=== PATIENT | female | born 1965 | race American Indian/Alaskan Native ===

== ENCOUNTER 2020-11-01 20:37 | Emergency (ER) | payer OTHER ==
[2020-11-01 21:58] VITALS: BP 143/82
--- NOTE | 2020-11-01 22:46 | XRay Report ---
RIGHT FOOT 3 VIEWS INDICATION / CLINICAL INFORMATION: acute 1st, 2nd, 3rd MT pain, swelling, redness COMPARISON: None available. FINDINGS: BONES / JOINT(S): Large bunion at the first metatarsal head with associated hallux valgus. Mild scatt ered DJD. No significant arthritis. SOFT TISSUES: Approximately 1.5 cm fragment of a sewing pin lies within the soft tissues anterior to the first metatarsal shaft. ADDITIONAL FINDINGS: None. Signer Name: Zev Boyd MD Signed: 11/01/2020 10:42 PM Workstation Name: [id number]
[2020-11-01] MEDS ORDERED: LIDOCAINE (1%) 10 MG/1 ML VIAL 20 ML MDV INFILTRATI ONE (23:20)
--- NOTE | 2020-11-01 23:34 | Emergency Department Report ---
ED General Adult HPI - General Chief complaint: Extremity Injury, Lower Stated complaint: FB/IN RT FOOT/PAINFUL Time Seen by Provider: 11/01/20 22:02 Source: patient Mode of arrival: Ambulatory Limitations: No Limitations - History of Present Illness Initial comments: 54-year-old -[place] female patient presents with complaints of right foot pain x 3 days. Patient states while putting on her shoe, she believes a pin was stuck inside of it and it slid into her foot. She states the pain suddenly worsened today when she dropped a bag on her foot. Patient rates her pain as a 9/10 in severity and states it worsens with ambulation. She denies any fever/chills/sweats, numbness/tingling/weakness in the foot, or difficulty moving her foot. - Related Data Previous Rx's Medication Instructions Recorded Last Taken Type Acetaminophen/Codeine [Tylenol 1 tab PO Q8H PRN #6 tab 11/01/20 Unknown Rx /Codeine # 3 tab] Ibuprofen [Motrin 800 MG tab] 800 mg PO Q8HR PRN #21 tablet 11/01/20 Unknown Rx Allergies Allergy/AdvReac Type Severity Reaction Status Date / Time No Known Allergies Allergy Unverified 11/01/20 22:08 ED Review of Systems ROS: Stated complaint: FB/IN RT FOOT/PAINFUL Other details as noted in HPI Constitutional: denies: chills, malaise Musculoskeletal: joint swelling, arthralgia Skin: change in color ED Past Medical Hx - Past Medical History Previous Medical History?: No - Surgical History Past Surgical History?: No - Social History Smoking Status: Never Smoker Substance Use Type: None - Medications Home Medications: Home Medications Medication Instructions Recorded Confirmed Last Taken Type Acetaminophen/Codeine [Tylenol 1 tab PO Q8H PRN #6 tab 11/01/20 Unknown Rx /Codeine # 3 tab] Ibuprofen [Motrin 800 MG tab] 800 mg PO Q8HR PRN #21 tablet 11/01/20 Unknown Rx ED Physical Exam - General Limitations: No Limitations General appearance: alert, in no apparent distress - Head Head exam: Present: atraumatic, normocephalic - Eye Eye exam: Present: normal appearance. Absent: scleral icterus - Respiratory Respiratory exam: Absent: respiratory distress - Cardiovascular Cardiovascular Exam: Present: regular rate - Extremities Exam Extremities exam: Present: other (Mild swelling noted atop the right first and second metatarsals with mild erythema; no fluctuance or purulent drainage noted; patient has normal pedal pulse, range of motion, and sensation of the foot) - Expanded Lower Extremity Exam Right Gait: Positive: antalgic - Neurological Exam Neurological exam: Present: alert, oriented X3 - Psychiatric Psychiatric exam: Present: normal affect, normal mood - Skin Skin exam: Present: warm, dry, intact. Absent: rash, diaphoretic ED Course Vital Signs 11/01/20 21:55 Temperature 97.8 F Pulse Rate 76 Respiratory 17 Rate Blood Pressure 143/82 O2 Sat by Pulse 100 Oximetry ED Medical Decision Making - Radiology Data Radiology results: report reviewed Fluoro Time In Minutes: RIGHT FOOT 3 VIEWS INDICATION / CLINICAL INFORMATION: acute 1st, 2nd, 3rd MT pain, swelling, redness COMPARISON: None available. FINDINGS: BONES / JOINT(S): Large bunion at the first metatarsal head with associated hallux valgus. Mild scattered DJD. No significant arthritis. SOFT TISSUES: Approximately 1.5 cm fragment of a sewing pin lies within the so ft tissues anterior to the first metatarsal shaft. ADDITIONAL FINDINGS: None. - Medical Decision Making 54-year-old -[place] female patient presents with complaints of right foot pain x 3 days. Patient states while putting on her shoe, she believes a pin was stuck inside of it and it slid into her foot. She states the pain suddenly worsened today when she dropped a bag on her foot. Patient rates her pain as a 9/10 in severity and states it worsens with ambulation. She denies any fever/chills/sweats, numbness/tingling/weakness in the foot, or difficulty moving her foot. X-ray shows 1.5 cm metal pin foreign body of the right foot discussed patient with Dr. Malcolm who also evaluated the patient-given depth of pain and foot, recommends patient follow-up with podiatry for further evaluation and surgical removal. Patient provided with pain medication and signs and symptoms that should prompt immediate return to the emergency department were discussed in detail with patient who verbalized understanding. Patient placed in Ortho shoe and provided with crutches. She is well-appearing and stable for discharge. Critical care attestation.: If time is entered above; I have spent that time in minutes in the direct care of this critically ill patient, excluding procedure time. ED Disposition Clinical Impression: Laceration of right foot with foreign body Qualifiers: Encounter type: initial encounter Qualified Code(s): S91.321A - Laceration with foreign body, right foot, initial encounter Disposition: TO HOME OR SELFCARE Is pt being admited?: No Condition: Stable Instructions: Hand or Foot Foreign Body, Pediatric Prescriptions: Ibuprofen [Motrin 800 MG tab] 800 mg PO Q8HR PRN #21 tablet PRN Reason: pain Acetaminophen/Codeine [Tylenol /Codeine # 3 tab] 1 tab PO Q8H PRN #6 tab PRN Reason: Pain , Severe (7-10) Referrals: COSMO PHILLIPS MD [Staff Physician] - 11/03/20
--- NOTE | 2020-11-01 23:37 | Event Note ---
Face to Face: For this encounter I have reviewed the PA/PAWN SHOP KEEPER documentation, treatment plan, medical decision making, and I had face to face time with this patient. I evaluated patient. I gave patient extensive education. Patient will need foreign body extraction by rivet tosser or orthopedic surgery. I reviewed radiographs with my colleague. I recommended ice elevation ibuprofen as necessary for pain.
[2020-11-01] MEDS ORDERED: oxyCODONE /ACETAMINOPHEN 5-325MG TAB PO ONE (23:43)
[2020-11-01] MEDS ORDERED: IBUPROFEN 800 MG TAB PO ONE (23:43)
[2020-11-02] MEDS ORDERED: DIPHtheria,PERTUSSIS(ACELL),TETANUS VACCINE/PF 0.5 ML VIAL IM ONE (00:08)
== END 2020-11-02 00:20 | disposition home or self-care (01) ==
LOC: ED 20:37
DX: S91.321A Laceration with foreign body, right foot, initial encounter (principal); Z79.1 Long term (current) use of non-steroidal anti-inflammatories (NSAID); Z79.899 Other long term (current) drug therapy; X58.XXXA Exposure to other specified factors, initial encounter; Y93.89 Activity, other specified; Y92.89 Other specified places as the place of occurrence of the external cause; Y99.8 Other external cause status
CPT/HCPCS: 90471; 90715